=== PATIENT | female | born 1950 | race Caucasian/White ===

== ENCOUNTER → 2018-02-27 | Outpatient (CLI) | payer MEDICARE, OTHER ==
[~2018-02-27] MED LIST: BENADRYL25 MG; LEVOTHYROXIN0.025 MG PO; METAMUCIL PAC1 UDPK1 PO; MOM; NORCO 5-325 TA1 EACH PO; OXYIR5 MG PO; PERCOCET 5-3251 EACH PO; SIMVASTATIN40 MG PO; STOOL SOFTENER1 EAC2 PO; TRICOR145 MG PO; WELLBUTRIN 100100 M1 PO
== END ==
LOC: M.ULTRA 10:23
DX: N28.1 Cyst of kidney, acquired (principal)

== ENCOUNTER 2018-10-12 15:37 | Inpatient (IN) | payer MEDICARE, OTHER ==
[~2018-10-12] VITALS: Ht 160 cm; Wt 92.3 kg
[2018-10-12] MEDS ORDERED: COZAAR 25 MG TA25 M1 PO (16:04)
[2018-10-12] MEDS ORDERED: ANTIVERT25 MG PO (16:05)
[2018-10-12] MEDS ORDERED: OMEPRAZOLE20 M1 PO (16:05)
[2018-10-12] MEDS ORDERED: PROZAC20 MG PO (16:05)
[2018-10-12] MEDS ORDERED: CRESTOR20 MG PO (16:06)
[2018-10-12 16:49] LABS: ABSOLUTE BASOPHILS 0.1 thou/uL (0.0-0.2); ABSOLUTE EOSINOPHILS 0.1 thou/uL (0.0-0.7); ABSOLUTE LYMPHOCYTES 2.6 thou/uL (0.8-5.3); ABSOLUTE MONOCYTES 0.5 thou/uL (0.0-1.2); BASOPHILS 0.8 %; HEMATOCRIT 41.4 % (37.0-47.0); LYMPHOCYTES 35.8 %; MCH 29.4 pg (26.0-34.0); MCHC 33.8 g/dL (28.0-37.0); MCV 87.1 fL (80.0-100.0); MONOCYTES 6.9 %; NUCLEATED RBCS 0 /100WBC; PLATELET COUNT* 255 thou/uL (150-400); POLYS 55.5 %; RBC 4.75 mil/uL (4.20-5.00); RDW-CV 13.3 % (10.5-14.5); WBC 7.3 thou/uL (4.0-11.0)
[2018-10-12 17:00] LABS: ANION GAP 9 mmol/L (7-16); BUN 17 mg/dL (7-18); CALCIUM 8.8 mg/dL (8.5-10.1); CHLORIDE 106 mmol/L (98-107); CO2 27 mmol/L (21-32); GLUCOSE 95 mg/dL (70-99); POTASSIUM 4.6 mmol/L (3.5-5.1); SODIUM 142 mmol/L (136-145)
[2018-10-12 17:10] LABS: TROPONIN-I LEVEL <0.06 ng/mL (<0.06)
--- NOTE | 2018-10-12 18:55 | NUR ---
REPORT GIVEN TO PALLAVI MARS WHO IS TO ASSUME PT CARE AT THIS TIME.
[2018-10-12 19:49] VITALS: BP 139/66
[2018-10-12 20:30] VITALS: BP 160/65
[2018-10-13] VITALS (7 sets, daily range): BP systolic 126–147; BP diastolic 61–77
--- NOTE | 2018-10-13 04:41 | NUR ---
PT RECIEVED FROM ED. ALERT AND ORIENTED X4. CALL LIGHT WITHIN REACH AND BED IN LOW POSITION. C/O PAIN, MEDICATION GIVEN PER EMAR. SAT MAINTAINED IN RA. HOURLY ROUNDING DONE FOR PT SAFETY.
[2018-10-13 05:36] LABS: ABSOLUTE EOSINOPHILS 0.1 thou/uL (0.0-0.7); ABSOLUTE LYMPHOCYTES 3.4 thou/uL (0.8-5.3); ABSOLUTE MONOCYTES 0.6 thou/uL (0.0-1.2); BASOPHILS 0.4 %; EOSINOPHILS 1.7 %; HEMATOCRIT 39.3 % (37.0-47.0); HEMOGLOBIN 12.7 gm/dL (12.0-15.0); LYMPHOCYTES 47.7 %; MCH 28.7 pg (26.0-34.0); MCHC 32.2 g/dL (28.0-37.0); MCV 89.1 fL (80.0-100.0); MONOCYTES 7.9 %; MPV 9.5 fl. (7.2-11.1); NUCLEATED RBCS 0 /100WBC; PLATELET COUNT* 215 thou/uL (150-400); POLYS 42.3 %; RBC 4.41 mil/uL (4.20-5.00); RDW-CV 13.2 % (10.5-14.5); WBC 7.2 thou/uL (4.0-11.0)
[2018-10-13 05:47] LABS: CALCIUM 8.2 mg/dL (8.5-10.1); CREATININE 0.8 mg/dL (0.6-1.3); POTASSIUM 4.4 mmol/L (3.5-5.1)
--- NOTE | 2018-10-13 10:04 | NUR ---
ASSUMED CARE OF PT THIS AM AROUND 0715- BOWLING ALLEY MANAGER IN PLACE ORDERED, TRACING SR/SB THIS AM- UPON ASSESSMENT PT NOTED TO BE RESTING IN BED- PT A&O X4- CONTINENT OF BOWEL AND BLADDER-SBA WITH TRANSFERS FOR SAFETY- LCTA, RESP EVEN AND UN-LABORED- VSS, O2 SAT 100% ON RA- ABD SOFT/ROUND/NON-TENDER, BS X4 QUADS- LAST BM REPORTED 10/12/18- GOOD PO INTAKE NOTED THIS SHIFT WITH MEALS- IV NOTED TO LEFT AC INTACT AND SL- LACERATION NOTED TO LEFT EYE BROW WITH NOTED SWEELING/BRUSING NOTED TO LEFT EYE- PT DENIES ANY C/O PAIN/DISCOMFORT THIS AM- CALL LIGHT AND PERSONAL BELONGINGS WITH IN REACH- HOURLY ROUNDS IN PLACE R/T SAFETY/NEEDS- ALL NEEDS MET AT THIS TIME-WCTM
--- NOTE | 2018-10-13 12:39 | NUR ---
Pt is A&O. Resides at home with her . Active and independent. No DME. No hx of HH or SNF. Goal is home at dc, no needs anticipated. Per Pt, anticipate dc tomorrow.
--- NOTE | 2018-10-13 13:03 | NUR ---
Nutrition: Consult received for "other." Pt admitted with syncope. Labs noted, no albumin recorded. Heart Healthy diet. Good po intake. Wt: 201#. No nutrition interventions needed at this time. RD available via consult if further assessment is needed. Low risk.
--- NOTE | 2018-10-13 14:02 | EKG ---
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
--- NOTE | 2018-10-13 14:19 | 2DMMODE ---
[place] [address] 2 D/M-MODE ECHOCARDIOGRAM Name: SAL MARIA Room: [address] IN [facility]#: [id number] Admission: 10/12/18 Attend Phys: Geoffrey Britton, Discharge: Date of : 50 Date of Service: 10/13/18 1418 Report #: [id number] THIS REPORT FOR: //name// APPROVED REPORT Study performed: 10/13/2018 10:49:51 EXAM: Comprehensive 2D, Doppler, and color-flow Echocardiogram Patient Location: In-Patient Room #: [facility] Status: routine BSA: 1.89 HR: 63 bpm BP: 147/65 mmHg Rhythm: NSR Other Information Study Quality: Fair Indications Syncope 2D Dimensions IVSd: 14.62 (7-11mm) LVOT Diam: 19.29 (18-24mm) LVDd: 39.65 mm PWd: 10.14 (7-11mm) Ascending Ao: 30.05 (22-36mm) LVDs: 21.63 (25-40mm) Aortic Root: 28.08 mm Volumes Left Atrial Volume (Systole) LA ESV Index: 34.30 mL/m2 Aortic Valve AoV Peak Agus.: 1.59 m/s AO Peak Gr.: 10.10 mmHg LVOT Max P.42 mmHg AO Mean Gr.: 5.70 mmHg LVOT Mean P.74 mmHg LVOT Max V: 1.16 m/s AO V2 VTI: 36.45 cm LVOT Mean V: 0.77 m/s CATALINA (VTI): 2.13 cm2 LVOT V1 VTI: 26.60 cm Mitral Valve E/A Ratio: 0.90 MV Decel. Time: 292.14 ms MV E Max Agus.: 0.87 m/[place] [address] 2 D/M-MODE ECHOCARDIOGRAM Name: SAL MARIA Room: [address] IN .R.#: [id number] Admission: 10/12/18 Attend Phys: Geoffrey Britton, Discharge: Date of : 50 Date of Service: 10/13/18 1418 Report #: [id number] MV PHT: 84.72 ms MVA (PHT): 2.60 cm2 TDI E/Lateral E': 10.88 E/Medial E': 12.43 Medial E' Agus.: 0.07 m/s Lateral E' Agus.: 0.08 m/s Pulmonary Valve PV Peak Agus.: 1.23 m/s PV Peak Gr.: 6.10 mmHg Left Ventricle The left ventricle is normal size. There is normal LV segmental wall motion. There is normal left ventricular wall thickness. Left ventricular systolic function is normal. The left ventricular ejection fraction is within the normal range. LVEF is 60-65%. Grade I - abnormal relaxation pattern. Right Ventricle The right ventricle is normal size. The right ventricular systolic function is normal. Atria Left atrium is mildly dilated. The right atrium size is normal. Aortic Valve Mild aortic valve sclerosis. No aortic regurgitation is present. There is no aortic valvular stenosis. Mitral Valve The mitral valve is normal in structure. There is no mitral valve regurgitation noted. No evidence of mitral valve stenosis. Tricuspid Valve The tricuspid valve is normal in structure. Unable to assess PA pressure. Trace tricuspid regurgitation. Pulmonic Valve Pulmonic valve is not well visualized. There is no pulmonic valvular regurgitation. Great Vessels The aortic root is normal in size. IVC is normal in size and collapses >50% [place] [address] 2 D/M-MODE ECHOCARDIOGRAM Name: SAL MARIA Room: [address] IN [facility]#: [id number] Admission: 10/12/18 Attend Phys: Geoffrey Britton, Discharge: Date of : 50 Date of Service: 10/13/18 1418 Report #: [id number] Pericardium There is no pericardial effusion. <Conclusion> LVEF is 60-65%. Left atrium is mildly dilated. <ELECTRONICALLY SIGNED> By: Jose Cruz Herrera MD, [facility] 10/13/18 1418 1418 1418 Jose Cruz Herrera MD, FAC /INF
--- NOTE | 2018-10-13 17:10 | NUR ---
PT CURRENTLY RESTING IN BED, AT SIDE- SYNTHETIC DEPARTMENT SUPERVISOR IN PLACE ORDERED, TRACING SR- IV NOTED TO LEFT AC INTACT AND SL, IVF D/C'D THIS SHIFT- ORTHO STATS IN PLACE INDICATED- PRN IBUPROFEN THIS PER PT REQUEST- ECHO COMPLETED THIS SHIFT ORDERED, RESULTS NOTED AT 60- 65%- CAROTID DOPLER COMPLETED THIS SHIFT WITH TORTUOUS INTERNAL CAROTID ARTERIES NOTED WITH NO EVIDENCE FOR STENOSIS- PT MAKES NEEDS KNOWN- ALL NEEDS MET AT THIS TIME-WCTM
[2018-10-14] VITALS: BP 136/69
[2018-10-14 04:00] VITALS: BP 157/66
--- NOTE | 2018-10-14 05:23 | NUR ---
ASSUMED PATIENT CARE AT 1900. PATIENT ALERT AND ORIENTED TIMES FOUR. COMPLAINTS OF PAIN THROUGH THE NIGHT. CONTROLLED WITH ORAL MEDICATIONS. VITAL SIGNS WNL. FLIGHT PARAMEDIC AND HOURLY ROUNDING COMLETED CHARTED
[2018-10-14 07:48] VITALS: BP 147/73
--- NOTE | 2018-10-14 09:33 | NUR ---
ASSUMED CARE OF PT THIS AM AROUND 0730- BINDERY CUTTER OPERATOR IN PLACE ORDERED, TRACING SR- UPON ASSESSMENT PT NOTED TO BE RESTING IN BED, WATCHING TV- PT A&O X4- CONTINENT OF BOWEL AND BLADDER- UP AD-MEHRAN IN ROOM WITH STEADY GAIT NOTED- LCTA, RESP EVEN AND UN-LABORED- VSS, O2 SAT 95% ON RA- ABD SOFT/ROUND/NON-TENDER, BS X4 QUADS- LAST BM REPORTED 10/13/18- IV NOTED TO LEFT AC INTACT AND SL- PT DENIES ANY C/O PAIN/DISCOMFORT AT THIS TIME- MAKES NEEDS KNOWN- ALL NEEDS MET AT THIS TIME-WCTM
[2018-10-14 09:47] VITALS: BP 147/73
--- NOTE | 2018-10-14 10:58 | CON ---
[address] [address] CONSULTATION Name: SAL MARIA Room: [address] IN M.R.#: [id number] Admission: 10/12/18 Attend Phys: Geoffrey Britton MD Discharge: Date of : 50 Report #: [id number] THIS REPORT FOR: //name// CC: Geoffrey Mcrae NEUROLOGY CONSULT HISTORY OF PRESENT ILLNESS: The patient is a 68-year-old female with syncopal episodes. The patient has been having these episodes for a little over a year. Her primary care provider has been treating this with dizzy medication. Her witnessed this particular event. The patient passed out, but came to right after the event. With this most recent event, the patient fell forward on to the concrete and hit her head. The patient had seen Cardiology in the past, but that had been some time ago. PAST MEDICAL HISTORY: Hyperlipidemia, gastroesophageal reflux, depression/anxiety. PAST SURGICAL HISTORY: Right knee arthroscopy, tonsillectomy. MEDICATIONS: At home, losartan 50 mg, fluoxetine 20 mg, meclizine 25 mg, omeprazole 20 mg, Crestor 20 mg. ALLERGIES: None. PHYSICAL EXAMINATION: VITAL SIGNS: Temperature is 36.6, pulse rate 73, respiratory rate 18, blood pressure 147/65, bedside pulse oximetry 97% on room air. NEUROLOGIC: Cranial nerves 2-12 are grossly intact. Motor exam demonstrates symmetrical strength in all 4 extremities with tone and bulk normal. Reflexes are trace throughout. Plantar responses are flexor. Coordination demonstrates no evidence of dysmetria. Gait was not tested. LABORATORY DATA: White blood cell count 7.2, hemoglobin 12.7, hematocrit 39.3. Chemistry: Sodium 143, potassium 4.4, chloride 107, carbon dioxide 27, BUN 17, creatinine 0.8, glucose 102. IMAGING STUDIES: CT scan of the head is unremarkable. Carotid ultrasound demonstrates no evidence of hemodynamically significant stenosis. IMPRESSION: This patient has had several syncopal episodes. I would recommend orthostatic blood pressures. If the patient is not orthostatic and nothing more can be found on inpatient telemetry, then she may need more invasive cardiac monitoring or more prolonged cardiac monitoring in the future. I do not think further neurodiagnostic studies with [place] [address] CONSULTATION Name: SAL MARIA Room: [address] IN [facility]#: [id number] Admission: 10/12/18 Attend Phys: Geoffrey Britton MD Discharge: Date of : 50 Report #: [id number] I thank you for your kind referral of this patient. <ELECTRONICALLY SIGNED> By: Violet Goldberg DO 10/14/18 1058 1115 1323Roxane Princess Goldberg DO /nt
--- NOTE | 2018-10-14 12:29 | NUR ---
ORDERS RECEIEVED FOR [facility] TO D/C TO HOME WITH FOLLOW UP'S PER AND CARDIOLOGY- NEEDED HOLTER/CARDIAC 30MIN MONITOR PLACED PER CARDIOLOGY PRIOR TO D/C WITH TEACHING GIVEN- IV TO LEFT AC D/C'D ALONG WITH STRAIN TECHNICIAN PRIOR TO D/C- NEEDED FOLLOW UPS/EDUCATION/TEACHING GIVEN TO PT AND AT TIME OF D/C WITH ALL QUESTIONS AND CONCERNS ADDRESSED- PICTURE OBTAINED OF LEFT FOREHEAD LACERATION/BRUISING SWELLING PRIOR TO D/C AND PLACED ON CHART FOR VIEWING- BELONGINGS PACKED AND ACCOUNTED FOR PER PT AND PRIOR TO D/C- PT ESCORTED PER TECH VIA W/C WITH BELONGINGS; AT SIDE TO VEHICLE AT 1240 -NO PROBLEMS TO NOTE AT TIME OF D/C
--- NOTE | 2018-10-16 08:48 | CON ---
[address] [address] CONSULTATION Name: CROWSAL K Room: [address] IN M.R.#: [id number] Admission: 10/12/18 Attend Phys: Geoffrey Britton MD Discharge: 10/14/18 Date of : 50 Report #: [id number] THIS REPORT FOR: //name// CC: Geoffrey Mcrae DO DATE OF SERVICE: 10/13/2018 CARDIOLOGY CONSULTATION HISTORY OF PRESENT ILLNESS: The patient is a 68-year-old white female who I was asked to see in the hospital after she had a syncopal spell. The patient has a long history of chest pain. She actually had an echocardiogram done in 2015 that showed a normal ejection fraction with aortic sclerosis. She actually went to the Emergency Room at [facility] in 06/2016 with chest pain and was sent home. I saw her in the Cardiology Clinic felt her pain is atypical for angina. She did have a left bundle branch block. She actually underwent a nuclear stress test in 09/2016 that showed no evidence of ischemia with an ejection fraction of over 80%. She continues to have occasional chest pain, although it is nonexertional. There is no radiation of the pain to the arms. She denied any trauma to her chest. It is not related to food. Recently, she has had recurrent syncopal spells. She will feel lightheaded and actually fall on to the ground. She denied any palpitations. Yesterday, she fell and her brought her to the Emergency Room. Cardiology consultation was requested. She denied any vomiting, diarrhea or bleeding. PAST MEDICAL HISTORY: She has had previous cholecystectomy and tonsillectomy. She has a history of hyperlipidemia and hypertension. MEDICATIONS: Include losartan, omeprazole, Effexor, simvastatin. ALLERGIES: SHE HAS A PREVIOUS INTOLERANCE TO PRAVASTATIN. FAMILY HISTORY: Positive for heart disease. SOCIAL HISTORY: She is . She and her live in [place], [place]. She is retired from [employer]. She and her travel quite a bit. She does not exercise on a regular basis. No smoking or alcohol abuse. REVIEW OF SYSTEMS: She has had no history of stroke, asthma, peptic ulcer disease, kidney disease, cancer, psychiatric illness, chronic skin condition. PHYSICAL EXAMINATION: GENERAL: Revealed an elderly female lying in bed. She appeared in no distress. VITAL SIGNS: She had a blood pressure of 140/60, pulse is 70. [place] [address] CONSULTATION Name: SAL MARIA Room: [address]#: [id number] Admission: 10/12/18 Attend Phys: Geoffrey Britton MD Discharge: 10/14/18 Date of : 50 Report #: [id number] HEENT: She was anicteric, conjunctivae pink. Mucous members moist. NECK: Veins nondistended. No carotid bruits. Neck supple. CHEST: Clear to auscultation. CARDIOVASCULAR: Regular rate and rhythm. ABDOMEN: Soft. EXTREMITIES: Had no edema. Dorsalis pedis pulse could not be palpated. SKIN: Cool and dry. NEUROLOGIC: Nonfocal. LABORATORY DATA: Her ECG showed a sinus rhythm with a left bundle branch block. Her workup, she had CT scan of the head performed without contrast that showed no acute abnormality. Chest x-ray showed no acute abnormality. Her lab work; sodium 143, creatinine 0.8. Troponin 0.06. White blood cell count 7.2, hemoglobin 12.7. IMPRESSION AND RECOMMENDATIONS: 1. Recurrent falls. No obvious cause. I would consider discharging the patient with a 30-day monitor. I will also consider an EEG to rule out seizures. If she continues to have syncope, I would consider a tilt table test. 2. History of chest pain. Suspect noncardiac. Previous nuclear stress test was negative. 3. Hypertension. The patient is on an ARB. 4. Hyperlipidemia. The patient has been on a statin drug. <ELECTRONICALLY SIGNED> By: Jose Cruz Herrera MD, [facility] 10/16/18 0848 0900 [id number] Cruz Herrera MD, [facility] /nt
== END 2018-10-14 12:39 | disposition home or self-care (01) | DRG 312 ==
LOC: M.ERS 15:37 → M.2W 17:14 → M.TBA-ER 17:14 → M.2W 20:09
PROVIDERS: Nurse Practitioner Psychiatric/Mental Health; ADMIT Internal Medicine
PROC: 0HQ1XZZ Repair Face Skin, External Approach (ICD-10-PCS; principal; 2018-10-12)
DX: R55 Syncope and collapse (principal); S01.112A Laceration without foreign body of left eyelid and periocular area, initial encounter; I10 Essential (primary) hypertension; E78.5 Hyperlipidemia, unspecified; K21.9 Gastro-esophageal reflux disease without esophagitis; F41.9 Anxiety disorder, unspecified; F32.9 Major depressive disorder, single episode, unspecified; W18.09XA Striking against other object with subsequent fall, initial encounter; Y93.89 Activity, other specified; Y92.89 Other specified places as the place of occurrence of the external cause; Z23 Encounter for immunization; Y99.8 Other external cause status; Z90.49 Acquired absence of other specified parts of digestive tract; Z79.899 Other long term (current) drug therapy; Z88.8 Allergy status to other drugs, medicaments and biological substances; Z82.49 Family history of ischemic heart disease and other diseases of the circulatory system

== ENCOUNTER → 2018-10-17 | Outpatient (CLI) | payer MEDICARE, OTHER ==
[2018-10-17] VITALS (30 sets, daily range): BP systolic 105–154; BP diastolic 59–91
[~2018-10-17] MED LIST changes: +ANTIVERT25 MG PO; +COZAAR 25 MG TA25 M1 PO; +CRESTOR20 MG PO; +OMEPRAZOLE20 M1 PO; +PROZAC20 MG PO
--- NOTE | 2018-10-20 11:01 | TST ---
[place] [address] TREADMILL STRESS TEST Name: SAL MARIA Room: [facility]#: [id number] Admission: 10/17/18 Attend Phys: James Viramontes, Discharge: Date of : 50 Date of Service: 10/17/18 1315 Report #: [id number] THIS REPORT FOR: //name// CC: SUDHA Betancourt DATE OF SERVICE: 10/17/2018 OUTPATIENT UPRIGHT TILT TABLET TEST ORDERING PHYSICIAN: Jose Cruz Herrera MD, [facility] CONSENT: The risks and benefits of the procedure were described to the patient in lay terms. The patient elects to proceed. The patient had an upright tilt table with initial vital signs; blood pressure 139/83 with the heart rate of 78. At 2-minute intervals, the heart rate, oxygenation and blood pressure were monitored and recorded. Underlying rhythm was sinus with a bundle branch block. Nitroglycerin was administered 0.4 mg and the patient's rhythm and blood pressure remained stable. She complained of having a headache and felt lightheaded, but did not have syncope. At that time, her blood pressure is 126/69 with the pulse of 90 when she was having lightheaded symptoms. She completed the protocol without a syncopal event. IMPRESSION: Negative upright tilt table test for neurocardiogenic syncope. <ELECTRONICALLY SIGNED> By: James Viramontes MD, FAC 10/20/18 1101 1315 0106 James Viramontes MD, [facility] /nt
== END | disposition home or self-care (01) ==
LOC: M.CL 09:29
DX: R55 Syncope and collapse (principal); Z86.79 Personal history of other diseases of the circulatory system; Z98.890 Other specified postprocedural states; Z79.899 Other long term (current) drug therapy

== ENCOUNTER → 2019-06-12 | Outpatient (CLI) | payer MEDICARE, OTHER | LOC: M.ULTRA 12:47 | DX: N94.10 Unspecified dyspareunia (principal); R10.2 Pelvic and perineal pain; Z12.31 Encounter for screening mammogram for malignant neoplasm of breast ==

== ENCOUNTER → 2019-06-21 | Outpatient (CLI) | payer MEDICARE, OTHER | LOC: M.CT 13:00 | DX: K57.30 Diverticulosis of large intestine without perforation or abscess without bleeding (principal); I25.10 Atherosclerotic heart disease of native coronary artery without angina pectoris; R94.5 Abnormal results of liver function studies ==

== ENCOUNTER → 2019-08-16 | Outpatient (CLI) | payer MEDICARE, OTHER | LOC: M.MRI 11:03 | DX: M51.26 Other intervertebral disc displacement, lumbar region (principal); M48.07 Spinal stenosis, lumbosacral region ==

== ENCOUNTER → 2019-09-05 | Outpatient (CLI) | payer MEDICARE, OTHER ==
[~2019-09-05] MED LIST changes: -COZAAR 25 MG TA25 M1 PO; +COZAAR 50 MG TA50 M1 PO; -CRESTOR20 MG PO; +CRESTOR40 MG PO; +FLEXERIL PO; +PROZAC20 M1 PO
== END ==
LOC: M.PC 02:44
DX: M51.37 Other intervertebral disc degeneration, lumbosacral region (principal); M47.26 Other spondylosis with radiculopathy, lumbar region; M79.606 Pain in leg, unspecified

== ENCOUNTER 2021-04-26 03:54 | Emergency (ER) | payer MEDICARE, OTHER ==
[~2021-04-26] VITALS: Ht 160 cm; Wt 81.7 kg
[2021-04-26 04:37] LABS: URINE BILIRUBIN NEGATIVE (Negative); URINE BLOOD TRACE (Negative); URINE CLARITY CLEAR; URINE COLOR YELLOW; URINE GLUCOSE-RANDOM NEGATIVE (Negative); URINE KETONES NEGATIVE (Negative); URINE LEUKOCYTES-REFLEX NEGATIVE (Negative); URINE NITRITE-REFLEX NEGATIVE (Negative); URINE PROTEIN NEGATIVE (Negative); URINE SPECIFIC GRAVITY 1.025 (1.005-1.030); URINE UROBILINOGEN 0.2 E.U./dl (0.2-1.0)
[2021-04-26 04:43] LABS: ABSOLUTE BASOPHILS 0.1 thou/uL (0.0-0.2); ABSOLUTE EOSINOPHILS 0.1 thou/uL (0.0-0.7); ABSOLUTE MONOCYTES 0.9 thou/uL (0.0-1.2); ABSOLUTE NEUTROPHILS 10.1 thou/uL (1.6-8.1); BASOPHILS 0.6 %; EOSINOPHILS 0.5 %; HEMATOCRIT 43.5 % (37.0-47.0); HEMOGLOBIN 14.2 gm/dL (12.0-15.0); LYMPHOCYTES 15.2 %; MCH 29.1 pg (26.0-34.0); MCHC 32.7 g/dL (28.0-37.0); MCV 89.1 fL (80.0-100.0); MPV 8.4 fl. (7.2-11.1); NUCLEATED RBCS 0 /100WBC; PLATELET COUNT* 255 thou/uL (150-400); POLYS 76.7 %; RBC 4.88 mil/uL (4.20-5.00); RDW-CV 12.7 % (10.5-14.5); WBC 13.2 thou/uL (4.0-11.0)
[2021-04-26 04:58] LABS: CALCIUM 8.2 mg/dL (8.5-10.1); CREATININE 1.1 mg/dL (0.6-1.3)
[2021-04-26 05:03] LABS: ALBUMIN 3.5 g/dL (3.4-5.0); TOTAL BILIRUBIN 0.5 mg/dL (<0.1-1.0); TOTAL PROTEIN 7.7 g/dL (6.4-8.2)
[2021-04-26] MEDS ORDERED: PERCOCET 5-3251 EACH PO (06:20)
[2021-04-26] MEDS ORDERED: ZOFRAN ODT4 MG PO (06:20)
[2021-04-26] MEDS ORDERED: AUGMENTIN 500-1 EACH PO (06:20)
[2021-04-26 06:48] VITALS: BP 159/78
--- NOTE | 2021-04-28 10:36 | EKG ---
[place] [address] ELECTROCARDIOGRAM REPORT Name: MARLENYSINDYSAL Garner Room: [facility]#: [id number] Admission: 04/26/21 Attend Phys: Discharge: 04/26/21 Date of : 50 Date of Service: 04/26/21618 Report #: [id number] THIS REPORT FOR: //name// [facility] ED Test Date: 2021-04-26 Test Time: 06:19:37 Pat Name: SAL MARIA Department: Room: Gender: F Administrative Personal Assistant: TB : 1950 Requested By: Gabriela Esposito Order Number: [id number] MD: Sandoval Balbuena Measurements Intervals [place] Rate: 68 P: 51 [place]: 172 QRS: -22 QRSD: 125 T: 106 QT: 462 QTc: 492 Interpretive Statements Sinus rhythm Left bundle branch block Compared to ECG 10/12/2018 15:53:14 No significant changes Electronically Signed On 04-28-2021 10:36:19 [employer]NC MILL AND LATHE OPERATOR by Sandoval Balbuena [email or web address] <ELECTRONICALLY SIGNED> By: Sandoval Balbuena MD, FACC 04/28/21 1036 0619 0619 Sandoval Balbuena MD, [facility] /EPI
== END 2021-04-26 06:50 | disposition home or self-care (01) ==
LOC: M.ERS 03:54
PROVIDERS: Personal Emergency Response Attendant
DX: K57.32 Diverticulitis of large intestine without perforation or abscess without bleeding (principal); K59.00 Constipation, unspecified; R42 Dizziness and giddiness; E78.00 Pure hypercholesterolemia, unspecified; Z79.899 Other long term (current) drug therapy

== ENCOUNTER → 2021-04-30 | Outpatient (CLI) | payer MEDICARE, OTHER ==
[~2021-04-30] MED LIST changes: +AUGMENTIN 500-1 EACH PO; +ZOFRAN ODT4 MG PO
[2021-04-30 13:58] LABS: CREATININE 1.1 mg/dL (0.6-1.3)
== END ==
LOC: M.LAB 11:26 → M.CT 15:00
PROVIDERS: ATTEND Family Medicine
DX: K57.32 Diverticulitis of large intestine without perforation or abscess without bleeding (principal); I70.8 Atherosclerosis of other arteries

== ENCOUNTER → 2021-06-03 | Outpatient (CLI) | payer MEDICARE, OTHER | LOC: M.LAB 11:19 | PROVIDERS: ATTEND Anesthesiology | DX: Z01.812 Encounter for preprocedural laboratory examination (principal); Z20.822 Contact with and (suspected) exposure to COVID-19 ==